=== PATIENT | female | born 1995 | race Caucasian/White ===

== ENCOUNTER 2017-07-15 00:49 | Emergency (ER) | payer SELFPAY ==
[~2017-07-15] VITALS: Ht 167.6 cm; Wt 72.8 kg
[2017-07-15 00:56] VITALS: BP 126/75; PULSE 122; RESP 16; TEMP 102.3; O2SAT 98
[2017-07-15] MEDS ORDERED: prednisoLONE (CONTAINS ALCOHOL) 15 MG/5 ML ORAL SYR PO ONE (01:45)
[2017-07-15] MEDS ORDERED: DEXAMETHASONE SOD PHOS 4 MG/ML VIAL IM ONE (01:45)
[2017-07-15] MEDS ORDERED: AMOXICILLIN 400 MG/5ML LIQ 100 ML BTL PO ONE (01:45)
[2017-07-15] MEDS ORDERED: CLIN150C14 PO (01:46)
[2017-07-15] MEDS ORDERED: PRED20 PO (01:46)
--- NOTE | 2017-07-15 01:47 | PD ---
HPI Chief Complaint: ENT Complaint Time Seen by Provider: 01:34 Travel History International Travel<30 days: No Contact w/Intl Traveler<30days: No Traveled to known affect area: No History of Present Illness HPI 31-year-old female complaining of sore throat. Patient states the symptoms lasted 4 days ago. Patient states the pain is severe pain localized tobacco throat. Patient denies any pain radiation. Patient complains of earache. Patient denies any coughing congestion. Patient denies any nausea vomiting diarrhea. PFSH Past Medical History Medical History: Denies Significant Hx Tetanus Vaccination: < 5 Years Influenza Vaccination: No ?: Not LMP: 06/19/17 : 5 Para: 3 Miscarriage: 2 Past Surgical History Other Surgery: Yes (C SECTION AND TUBAL LIGATION) Social History Alcohol Use: No Tobacco Use: No Substance Use: No Allergies-Medications (Allergen,Severity, Reaction): Coded Allergies: albuterol (Verified Allergy, Severe, TREMMORS, 07/15/17) Reported Meds & Prescriptions Reported Meds & Active Scripts Active No Active Prescriptions or Reported Medications Review of Systems General / Constitutional: No: Fever Eyes: No: Visual changes HENT: Positive: Sore Throat, Earache, No: Headaches Cardiovascular: No: Chest Pain or Discomfort Respiratory: No: Shortness of Breath Gastrointestinal: No: Abdominal Pain Genitourinary: No: Dysuria Musculoskeletal: No: Pain Skin: No Rash Neurologic: No: Weakness Psychiatric: No: Depression Endocrine: No: Polydipsia Hematologic/Lymphatic: No: Easy Bruising Physical Exam Narrative GENERAL: Well-nourished, well-developed patient. SKIN: Focused skin assessment warm/dry. HEAD: Normocephalic. EYES: No scleral icterus. No injection or drainage. Slight TM: Clear. Throat: Erythematous with exudate and edema. NECK: Supple, trachea midline. No JVD. Patient has anterior cervical lymphadenopathy. CARDIOVASCULAR: Regular rate and rhythm without murmurs, gallops, or rubs. RESPIRATORY: Breath sounds equal bilaterally. No accessory muscle use. GASTROINTESTINAL: Abdomen soft, non-tender, nondistended. MUSCULOSKELETAL: No cyanosis, or edema. BACK: Nontender without obvious deformity. No CVA tenderness. Data Data Last Documented VS Vital Signs Date Time Temp Pulse Resp B/P (MAP) Pulse Ox O2 Delivery O2 Flow Rate FiO2 07/15/17 00:56 102.3 122 16 126/75 (92) 98 Orders Orders Amoxicillin 400 Mg/5ml Liq (Trimox 400 M (07/15/17 01:45) Prednisolone (W/Alcohol) Liq (Prednisolo (07/15/17 01:45) MDM Medical Decision Making Medical Screen Exam Complete: Yes Emergency Medical Condition: Yes Differential Diagnosis Differential diagnosis including pharyngitis, otitis media, Narrative Course 21-year-old female with a sore throat. Decadron 8 mg IM. Amoxicillin 800 mg by mouth given. Diagnosis Primary Impression: Pharyngitis Qualified Codes: J02.9 - Acute pharyngitis, unspecified Patient Instructions: General Instructions Additional Instructions: Clindamycin as directed. Prednisone as directed. Follow with personal physician. Return if worse. Med/Other Pt SpecificInfo: Prescription(s) given Scripts Prednisone (Prednisone) 20 Mg Tab 20 MG PO BID, #10 TAB 0 Refills Prov: Hola Gomez MD 07/15/17 Clindamycin (Clindamycin) 150 Mg Cap 300 MG PO Q6H for Infection, #80 CAP 0 Refills Prov: Hola Gomez MD 07/15/17 Disposition: DISCHARGE HOME Condition: Stable Hola Gomez MD Jul 15, 2017 01:46
[2017-07-15 02:04] VITALS: BP 120/74; TEMP 101.2
== END 2017-07-15 02:07 | disposition home or self-care (01) ==
LOC: PHED 00:49
DX: J02.9 Acute pharyngitis, unspecified (principal); Z88.8 Allergy status to other drugs, medicaments and biological substances
CPT/HCPCS: 96372; 99283; J1100